=== PATIENT | male | born 1965 | race African-American/Black ===

== ENCOUNTER 2021-10-07 15:54 | Inpatient (IN) | payer OTHER ==
[~2021-10-07] VITALS: Ht 185.4 cm; Wt 61.7 kg
[2021-10-07] MEDS ORDERED: SODIUM CHLORIDE 0.9% 1,000 ML IV ONE ×2 (17:15→19:30)
[2021-10-07 17:20] LABS: BASOPHILS % 0.5 % (0.0-2.0); EOSINOPHILS % 1.2 % (0.0-5.0); HEMATOCRIT. 41.6 % (42.0-52.0); HEMOGLOBIN. 13.1 g/dL (14.0-18.0); LYMPHOCYTES % 21.8 % (20.0-50.0); MEAN CORPUSCULAR HEMOGLOBIN 29.6 pg (28.0-32.0); MEAN CORPUSCULAR VOLUME 93.4 fL (80.0-94.0); MEAN PLATELET VOLUME 9.8 fl (7.4-10.4); MONOCYTES % 6.6 % (2.0-8.0); NEUTROPHILS % 69.9 % (40.0-76.0); PLATELET 165 x1000/uL (130-400); RED BLOOD CELL COUNT 4.45 mill/uL (4.7-6.1); RED CELL DISTRIBUTION WIDTH 12.8 % (11.6-14.6)
[2021-10-07 17:23] LABS: CLARITY URINE CLEAR (CLEAR); COLOR URINE YELLOW (YELLOW); KETONES URINE NEGATIVE (NEGATIVE); LEUKOCYTE ESTERASE URINE NEGATIVE (NEGATIVE); NITRITE URINE NEGATIVE (NEGATIVE); OCCULT BLOOD URINE NEGATIVE (NEGATIVE); PROTEIN URINE NEGATIVE (NEGATIVE); SPECIFIC GRAVITY URINE 1.028 (1.005-1.030); UROBILINOGEN URINE 0.2 E.U./dL (0.2-1.0)
[2021-10-07 17:35] LABS: CHLORIDE 86 mEq/L (98-107)
[2021-10-07 17:43] LABS: BETA HYDROXYBUTYRATE 0.1 mMol/L (0.0-0.3)
[2021-10-07] MEDS ORDERED: INSULIN REGULAR (HUMULIN R) UD 100 UNITS/ML SYR SUBCUT ONE (18:15)
[2021-10-07] MEDS ORDERED: INSULIN REGULAR (HUMULIN R) 300UNITS/3ML VIAL SUBCUT SCH (18:30)
[2021-10-08] MEDS ORDERED: HYDROCODONE/ACETAMINOPHEN 5/325MG TABLET PO PRN (07:15)
[2021-10-08] MEDS ORDERED: DOCUSATE SODIUM 100MG CAPSULE PO PRN (07:15)
[2021-10-08] MEDS ORDERED: ACETAMINOPHEN 325MG TABLET PO PRN (07:15)
[2021-10-08] MEDS ORDERED: MAGNESIUM/ALUMINUM HYDROXIDE/SIMETHICONE 30ML UDC PO PRN (07:15)
[2021-10-08] MEDS ORDERED: ONDANSETRON HCL 4MG/2ML INJ IV PRN (07:15)
[2021-10-08] MEDS: SODIUM CHLORIDE 0.9% 1,000 ML IV SCH ×2 (07:56→16:41)
[2021-10-08 09:00] VITALS: BP 111/75
[2021-10-08] MEDS ORDERED: NALOXONE HCL 0.4MG/ML VIAL IV PRN (09:15)
[2021-10-08] MEDS ORDERED: METFORMIN HCL 500MG TABLET PO SCH (09:30)
[2021-10-08] MEDS ORDERED: INSULIN GLARGINE UD 100 UNITS/ML SYR SUBCUT SCH (10:00)
[2021-10-08] MEDS ORDERED: METF-416 MT (11:20)
[2021-10-08] MEDS ORDERED: VIAG50 MT (11:27)
[2021-10-08] MEDS ORDERED: SITA100T11 MT (11:27)
[2021-10-08] MEDS ORDERED: GLIP10TA10 MT (11:27)
[2021-10-08] MEDS ORDERED: OXYC-104 MT (11:31)
[2021-10-08] MEDS ORDERED: GABA-290 MT (11:31)
[2021-10-08] MEDS ORDERED: LOSA50TA41 MT (11:31)
[2021-10-08 12:00] VITALS: BP 129/73
[2021-10-08] MEDS ORDERED: INFLUENZA VACCINE 05/PF 0.5 ML SYRINGE IM ONE (13:15)
[2021-10-08] MEDS: GABAPENTIN 300MG CAPSULE PO SCH ×2 (13:23→22:10)
[2021-10-08 16:00] VITALS: BP 124/79
[2021-10-08] MEDS ORDERED: INSULIN REGULAR (HUMULIN R) 300UNITS/3ML VIAL SUBCUT NR (18:51)
[2021-10-08] MEDS: INSULIN GLARGINE UD 100 UNITS/ML SYR SUBCUT SCH ×2 (19:07→22:11)
[2021-10-08 20:00] VITALS: BP 94/80
[2021-10-08] MEDS ORDERED: DEXTROSE 50% WATER 50ML SYRINGE IV PRN (21:15)
[2021-10-08] MEDS: INSULIN LISPRO 100 UNITS/ML SUBCUT SCH (22:11)
[2021-10-09] VITALS: BP 122/75
[2021-10-09 04:00] VITALS: BP 120/75
[2021-10-09] MEDS: GABAPENTIN 300MG CAPSULE PO SCH (05:18)
[2021-10-09] MEDS: SODIUM CHLORIDE 0.9% 1,000 ML IV SCH (05:19)
[2021-10-09 07:14] LABS: BASOPHILS % 0.5 % (0.0-2.0); EOSINOPHILS % 1.9 % (0.0-5.0); HEMATOCRIT. 35.7 % (42.0-52.0); HEMOGLOBIN. 11.9 g/dL (14.0-18.0); LYMPHOCYTES % 28.6 % (20.0-50.0); MEAN CORPUSCULAR HEMOGLOBIN 29.2 pg (28.0-32.0); MEAN CORPUSCULAR VOLUME 87.3 fL (80.0-94.0); PLATELET 187 x1000/uL (130-400); RED BLOOD CELL COUNT 4.08 mill/uL (4.7-6.1)
[2021-10-09] MEDS ORDERED: BLOOD SUGAR DIAGNOSTIC STRIP TEST SCH (07:20)
[2021-10-09] MEDS ORDERED: GLIPIZIDE 10MG TABLET PO SCH (07:20)
[2021-10-09 07:21] LABS: CHLORIDE 107 mEq/L (98-107)
[2021-10-09] MEDS ORDERED: INSULIN LISPRO 100 UNITS/ML SUBCUT SCH (07:50)
[2021-10-09 08:00] VITALS: BP 105/80
[2021-10-09] MEDS: INSULIN LISPRO 100 UNITS/ML SUBCUT SCH (08:32)
[2021-10-09 12:12] VITALS: BP 105/80
== END 2021-10-09 13:56 | disposition home or self-care (01) | DRG 638 ==
LOC: ER 15:54 → EDSEX 15:54 → MICUSO 20:23 → 6WST 10-08 08:48
PROVIDERS: ADMIT Hospitalist; ATTEND Hospitalist
DX: E11.65 Type 2 diabetes mellitus with hyperglycemia (principal); N17.9 Acute kidney failure, unspecified; E87.1 Hypo-osmolality and hyponatremia; E87.5 Hyperkalemia; Z20.822 Contact with and (suspected) exposure to COVID-19; I10 Essential (primary) hypertension; Z91.14 Patient's other noncompliance with medication regimen
CPT/HCPCS: 36415; 71045; 80048; 80053; 81003; 82010; 82962; 85025; 87426; 90686; 93005; 99285; J1815; J7030